=== PATIENT | female | born 1945 | race Caucasian/White ===

== ENCOUNTER → 2019-03-07 14:21 | Outpatient (ROUT) | payer MEDICARE, OTHER, SELFPAY ==
[2019-03-07 17:41] LABS: BUN Creatinine Ratio 28.3 (6-22); Blood Urea Nitrogen 17 mg/dL (7-17); Calcium 9.8 mg/dL (8.4-10.2); Carbon Dioxide 27 mmol/L (22-32); Chloride 104 mmol/L (98-107); Estimated Glomerular Filt Rate > 60.0 mL/min (>60); Glucose 99 mg/dL (80-110); HEMOLYSIS < 15 (0-50); Sodium 141 mmol/L (137-145)
[2019-03-07 17:57] LABS: Rheumatoid Factor < 8.6 IU/mL (<12.0)
[2019-03-07 18:07] LABS: Add Manual Diff / Slide Review NO; Basophils Absolute Auto 0 /uL (0-100); Basophils Percent Auto 0.7 % (0-2); Eosinophils Absolute Auto 100 /uL (0-450); Eosinophils Percent Auto 1.3 % (2-4); Hematocrit 43.2 % (36-46); Hemoglobin 14.5 g/dL (12.0-16.0); Lymphocytes Absolute Auto 2200 /uL (1100-4500); Lymphocytes Percent Auto 38.1 % (25-40); Mean Corpuscular HGB Conc 33.6 % (30-36); Mean Corpuscular Hemoglobin 32.3 PG (26-34); Mean Corpuscular Volume 96.2 fL (80-100); Monocytes Absolute Auto 600 /uL (0-900); Monocytes Percent Auto 9.9 % (3-14); Neutrophils Absolute Auto 3000 /uL (1500-7000); Platelet Count 201 X10^3/uL (150-400); Red Blood Cell Count 4.49 X10^6/uL (4.0-5.2); Red Cell Distribution Width 13.1 % (11.6-14.8); White Blood Cell Count 5.9 X10^3/uL (4.5-11.0)
[2019-03-07 18:39] LABS: Erythrocyte Sedimentation Rate 6 MM/HR (0-20)
[2019-03-09 11:43] LABS: CCP Antibody (IgG) < 16 Units (< 20)
[2019-03-10 11:35] LABS: ANA Screen, IFA NEGATIVE (NEGATIVE)
[2019-03-10 15:06] LABS: HLA B27 NEGATIVE (Negative)
== END ==
PROVIDERS: PCP Physician Assistant; Visit Provider Student in an Organized Health Care Education/Training Program
DX: Z00.00 Encounter for general adult medical examination without abnormal findings (principal); M25.50 Pain in unspecified joint
CPT/HCPCS: 80048; 81374; 85025; 85651; 86038; 86200; 86430

== ENCOUNTER → 2019-03-09 09:34 | Outpatient (CLI) | payer MEDICARE, OTHER, SELFPAY ==
--- NOTE | 2019-03-09 | DI.RAD.S_ITS ---
PROCEDURE: XR HAND RT MIN 3V INDICATIONS: polyarthralgia TECHNIQUE: 3 views of the hand(s) acquired. COMPARISON: None. FINDINGS: Bones: No fractures or dislocations. Carpal bones are normally aligned. No suspicious bony lesions. There is severe degenerative joint disease at the triscaphe joint, the second and third distal interphalangeal joints and wrist joint space narrowing, periarticular sclerosis and osteophyte formation. Moderate degenerative joint disease at the first carpal metacarpal joint, first metacarpal phalangeal joint. There is periarticular bony erosion at the second and third distal and middle phalanges at the distal interphalangeal joints. Soft tissues: No suspicious soft tissue calcifications. IMPRESSION: Severe degenerative joint disease. Erosive changes are seen at the second and third distal interphalangeal joints, suggesting erosive OA. Recommend clinical correlation. Dictated by: Leticia Kim M.D. on 03/09/2019 at 13:06 Approved by: Leticia Kim M.D. on 03/09/2019 at 13:09
--- NOTE | 2019-03-09 | DI.RAD.S_ITS ---
PROCEDURE: XR HAND LT MIN 3V INDICATIONS: Polyarthralgia TECHNIQUE: 3 views of the hand(s) acquired. COMPARISON: None. FINDINGS: Bones: No fractures or dislocations. Carpal bones are normally aligned. No suspicious bony lesions. There is [id number] degenerative joint disease at the triscaphe joint, first metacarpal joint, first metacarpal phalangeal joint, and multiple interphalangeal joints (most significant at the second distal interphalangeal joint). There is mild lateral subluxation of the second distal phalanx at the distal interphalangeal joint. There is osteopenia. Soft tissues: No suspicious soft tissue calcifications. IMPRESSION: 1. Severe degenerative joint disease, most likely secondary to osteoarthritis. 2. Osteopenia. Dictated by: Leticia Kim M.D. on 03/09/2019 at 13:04 Approved by: Leticia Kim M.D. on 03/09/2019 at 13:06
== END ==
PROVIDERS: PCP Physician Assistant; Visit Provider Student in an Organized Health Care Education/Training Program
DX: M85.851 Other specified disorders of bone density and structure, right thigh (principal); Z78.0 Asymptomatic menopausal state; M85.842 Other specified disorders of bone density and structure, left hand; M19.042 Primary osteoarthritis, left hand; M18.11 Unilateral primary osteoarthritis of first carpometacarpal joint, right hand; M19.041 Primary osteoarthritis, right hand; Z82.62 Family history of osteoporosis
CPT/HCPCS: 73130; 77080

== ENCOUNTER 2019-03-14 07:25 | Day surgery (SDC) | payer MEDICARE, OTHER, SELFPAY ==
[2019-03-14] MEDS: PROPARACAINE 0.5% OPHTH SOL 2 DROPS EYE-OP (08:05)
[2019-03-14] MEDS: CATARACT EYE COMPOUND (10 DROPS/SYRINGE) 3 DROPS EYE-OP (08:12)
[2019-03-14 08:21] VITALS: BP 132/79; PULSE 75; RESP 16; TEMP 36.2; O2SAT 99; BMI 24.0
--- NOTE | 2019-03-14 09:01 | PM.PREOP ---
Pre-operative Note Interval Note History & Physical reviewed/Exam performed by Physician: No Changes to H&P: No
--- NOTE | 2019-03-14 09:01 | PM.OP.1 ---
Operative Date/Time/Diagnoses Pre-op diagnosis: Nuclear Cataract Left eye Post-op diagnosis: same Procedure & Clinicians Surgeon: Zechariah Boswell Anesthesia Type: MAC +/- and Sedation Operative Notes Procedure in detail: Patient brought to the operating suite. Tetracaine drops placed in the left eye. Patient was prepped and draped in sterile manner. Wire lid speculum was placed in the eye. Betadine drops were placed on the eye. This was irrigated. Lidocaine jelly was placed on the eye. A paracentesis port was created with a side-port blade. 0.1 mL 1% preservative free lidocaine was injected into the anterior chamber. The anterior chamber was deepened with viscoelastic. 2.6 mm keratome was used to create a temporal clear corneal incision. Cystotome and Utrata forceps were used to create continuous tear capsulorrhexis. Balanced salt solution was used to hydro dissect the nucleus. The phacoemulsification handpiece was inserted and the nucleus was removed using the stop and chop technique. The irrigation aspiration handpiece was inserted and the remaining cortex was removed. Anterior chamber was deepened with viscoelastic. An Marcelino ZCB00 intraocular lens with a power of 23.0 was injected into the capsular bag. Irrigation aspiration handpiece was inserted and the remaining viscoelastic was removed. Incision was hydrated with balanced salt solution and found to be leak free with pressure with Weck-Christie sponges. 0.1 mL Vigamox injected anterior chamber. 0.3 mL Kenalog 10 mg was injected subconjunctivally. Lid speculum was removed. The patient left the operating room in excellent condition. Complications: none Post-operative Condition: stable Disposition: same day surgery
--- NOTE | 2019-03-14 09:14 | SUR.OPER ---
Supine on eye stretcher, head on extension cradle secured with tape. Arms tucked at sides with blanket. Pillow under knees.
[2019-03-14] MEDS: PHENYLEPHRINE/LIDOCAINE VIAL (OR) 0.2 ML EYE-OP (09:16)
[2019-03-14] MEDS: CHONDROIDTIN/SOD HYALURONATE 1.05 ML SYRINGE INTRAOCULA (09:17)
[2019-03-14] MEDS: MOXIFLOXACIN INJ 5 MG/ML VIAL EYE-OP (09:17)
[2019-03-14] MEDS: TRIAMCINOLONE 50 MG/5 ML VIAL INJ (09:17)
[2019-03-14] MEDS: BALANCED SALT IRRIG SOLN NO.2 500 ML, EPINEPHrine 1 MG IRR (09:18)
[2019-03-14] MEDS: LIDOCAINE JELLY 2% 5 ML 1 APPLIC TOP (09:18)
[2019-03-14] MEDS: TETRACAINE 0.5% OPHTH DROPS 4 ML 2 DROPS EYE-OP (09:18)
[2019-03-14 09:35] VITALS: BP 122/66; PULSE 81; RESP 16; TEMP 36.6; O2SAT 99
== END 2019-03-14 09:50 | disposition home or self-care (01) ==
LOC: OR 07:28
PROVIDERS: PCP Student in an Organized Health Care Education/Training Program; Visit Provider Ophthalmology
PROC: (CPT 66984; principal; 2019-03-14 09:15)
DX: H25.12 Age-related nuclear cataract, left eye (principal); E78.5 Hyperlipidemia, unspecified; F32.9 Major depressive disorder, single episode, unspecified
CPT/HCPCS: 66984; J0171; J2250; J3301

== ENCOUNTER 2019-03-28 07:27 | Day surgery (SDC) | payer MEDICARE, OTHER, SELFPAY ==
[2019-03-28] MEDS: PROPARACAINE 0.5% OPHTH SOL 2 DROPS EYE-OP (07:51)
[2019-03-28] MEDS: CATARACT EYE COMPOUND (10 DROPS/SYRINGE) 3 DROPS EYE-OP (07:52)
[2019-03-28 07:53] VITALS: BP 138/73; PULSE 81; RESP 20; TEMP 35.9; O2SAT 100; BMI 23.4
--- NOTE | 2019-03-28 09:15 | PM.PREOP ---
Pre-operative Note Interval Note History & Physical reviewed/Exam performed by Physician: No Changes to H&P: No
--- NOTE | 2019-03-28 09:15 | PM.OP.1 ---
Operative Date/Time/Diagnoses Pre-op diagnosis: Nuclear cataract right eye Procedure & Clinicians Procedure: Cataract Surgery Same procedure as scheduled: Yes Surgeon: Zechariah Boswell Anesthesia Type: MAC +/- and Sedation Operative Notes Procedure in detail: Patient brought to the operating suite. Tetracaine drops placed in the right eye. Patient was prepped and draped in sterile manner. Wire lid speculum was placed in the eye. Betadine drops were placed on the eye. This was irrigated. Lidocaine jelly was placed on the eye. A paracentesis port was created with a side-port blade. 0.1 mL 1% preservative free lidocaine was injected into the anterior chamber. The anterior chamber was deepened with viscoelastic. 2.6 mm keratome was used to create a temporal clear corneal incision. Cystotome and Utrata forceps were used to create continuous tear capsulorrhexis. Balanced salt solution was used to hydro dissect the nucleus. The phacoemulsification handpiece was inserted and the nucleus was removed using the stop and chop technique. The irrigation aspiration handpiece was inserted and the remaining cortex was removed. Anterior chamber was deepened with viscoelastic. An Marcelino ZCB00 intraocular lens with a power of 23.0 was injected into the capsular bag. Irrigation aspiration handpiece was inserted and the remaining viscoelastic was removed. Incision was hydrated with balanced salt solution and found to be leak free with pressure with Weck-Christie sponges. 0.1 mL Vigamox injected anterior chamber. 0.3 mL Kenalog 10 mg was injected subconjunctivally. Lid speculum was removed. The patient left the operating room in excellent condition. Complications: none Post-operative Condition: stable Disposition: same day surgery
[2019-03-28] MEDS: PHENYLEPHRINE/LIDOCAINE VIAL (OR) 0.2 ML EYE-OP (09:34)
[2019-03-28] MEDS: MOXIFLOXACIN INJ 5 MG/ML VIAL EYE-OP (09:34)
[2019-03-28] MEDS: TETRACAINE 0.5% OPHTH DROPS 4 ML 2 DROPS EYE-OP (09:35)
[2019-03-28] MEDS: LIDOCAINE JELLY 2% 5 ML 1 APPLIC TOP (09:35)
[2019-03-28] MEDS: BALANCED SALT IRRIG SOLN NO.2 500 ML, EPINEPHrine 1 MG IRR (09:35)
[2019-03-28] MEDS: CHONDROIDTIN/SOD HYALURONATE 1.05 ML SYRINGE INTRAOCULA (09:35)
[2019-03-28] MEDS: TRIAMCINOLONE 50 MG/5 ML VIAL INJ (09:35)
[2019-03-28 09:46] VITALS: BP 120/71; PULSE 75; RESP 24; TEMP 36.6; O2SAT 98
== END 2019-03-28 09:59 | disposition home or self-care (01) ==
PROVIDERS: PCP Student in an Organized Health Care Education/Training Program; Visit Provider Ophthalmology
PROC: (CPT 66984; principal; 2019-03-28 09:15)
DX: H25.11 Age-related nuclear cataract, right eye (principal); E78.5 Hyperlipidemia, unspecified; F32.9 Major depressive disorder, single episode, unspecified
CPT/HCPCS: 66984; J0171; J2250; J3301

== ENCOUNTER → 2020-12-13 17:00 | Outpatient (CLI) | payer MEDICARE, OTHER, SELFPAY | PROVIDERS: PCP Student in an Organized Health Care Education/Training Program; Visit Provider Nurse Practitioner | DX: R30.0 Dysuria (principal) | CPT/HCPCS: 87077; 87086; 87186 ==

== ENCOUNTER → 2021-07-10 11:03 | Outpatient (CLI) | payer MEDICARE, OTHER, SELFPAY | PROVIDERS: PCP Student in an Organized Health Care Education/Training Program; Visit Provider Physician Assistant | DX: R30.0 Dysuria (principal) | CPT/HCPCS: 87086 ==

== ENCOUNTER → 2022-03-05 11:25 | Outpatient (CLI) | payer MEDICARE, OTHER, SELFPAY ==
--- NOTE | 2022-03-05 | DI.RAD.S_ITS ---
PROCEDURE: XR SHOULDER RT MIN 2V INDICATIONS: chronic right shoulder pain TECHNIQUE: 3 views of the shoulder were acquired. COMPARISON: [facility], , SHOULDER MINIMUM 2 VIEW LEFT, 08/07/2016, 14:47. FINDINGS: Bones: No fractures or dislocations. No suspicious bony lesions. Visualized ribs appear intact. Moderate to severe acromioclavicular as well as glenohumeral narrowing. Medial humeral osteophyte is present. Soft tissues: No suspicious soft tissue calcifications. IMPRESSION: Glenohumeral and acromioclavicular arthritic changes above. Minimal interval progression compared to 2017. Dictated by: Jasmin Ly M.D. on 03/05/2022 at 17:28 Approved by: Jasmin Ly M.D. on 03/05/2022 at 17:29
== END ==
PROVIDERS: PCP Student in an Organized Health Care Education/Training Program; Referring Provider Student in an Organized Health Care Education/Training Program; Visit Provider Student in an Organized Health Care Education/Training Program
DX: M25.511 Pain in right shoulder (principal); G89.29 Other chronic pain
CPT/HCPCS: 73030

== ENCOUNTER → 2022-06-23 09:14 | Outpatient (CLI) | payer MEDICARE, SELFPAY ==
--- NOTE | 2022-06-23 13:19 | DIET.OUTPTC ---
Medical Nutrition Therapy Assessment Name: Anna Jones Date: 06/23/22 Time: [id number] Dx: Impaired Fasting Glucose Provider: Randy Castillo presents for initial visit. +FH of DM with father and maternal grandmother. States she would like more info on nutrition, BG goals, when to check BG, and prediabetes vs diabetes range. Reports increased stress over the last 1-2 years with family illnesses and losses. In review of her BG, she can pinpoint when she had increased stress, which resulted in more FBG >100mg/dl. Stress management techniques involve deep breathing. Feels it is difficult to manage her hypothyroidism and DM. Has had various weight changes which has been reflected in hgA1c. Report PMH of 160# and HgA1c of 6.1%. Then lost weight and dropped to 5.2-5.3%. Feels it becomes harder to manage HgA1c over time wtih same lifestyle changes. Review of diet recall/journal indicates low carb intake, adequate veggies and protein. Carbs she consumes are in moderation and high fiber, ie berries, whole grain bread. Aims for 60 oz water, plus coffee and tea per day. States this impacts the amount of times she is urinating, especially at night. Anthropometrics: Ht: 63 Wt: 122# reported Weight history: Reports 20# loss over the last 1.5 year after son passed. Stress eating (under eating/over eating) has had an effect on her over this time. Physical Activity: Walks 30+ min per day or stationary bike. Self-Monitoring Blood Glucose: 2/7 FBG >100mg/dl over the last week, with all reading under 105mg/dl. Most readings over the last two months have been under 100mg/dl (88-105mg/dl). Few pc readings for review, all under 140mg/dl. Diabetes Medications: None Pertinent Labs: HgA1c reported 5.2% Past Medical History: (Last Reviewed 07/10/21 @ 11:23 by Renee White PA-C) Cataract (lens) fragments in eye following cataract surgery, left eye Depression Hyperlipidemia Hypothyroid Psoriasis Sinus drainage Nutrition Rx: Meals: 30g CHO Snacks: 15-30g CHO fluids: 48-60oz water per day Nutrition Diagnosis: - Food and nutrition related knowledge deficit r/t no previous MNT aeb pt report Intervention: This participant was very receptive. Provided appropriate educational handouts. Discussed the following topics: Completed intake assessment. Discussed barriers to care. Pathophysiology of T2DM HgA1c for prediabtes vs diabetes BG goals for someone without diabetes (FBG <100mg/dl and 1-2hr pc <140mg/dl) Self monitoring recommendations High fiber foods and choosing complex carbs if having carbs Heart health nutrition: heart healthy fats Stress management and impact on BG Fluid recs for BG and kidney dwayne Created SMART goals for patient self-care and success. Goals: Follow recs for BG: FBG <100 and 1-2 hour pc <140 48-60oz fluids per day Try stress management resources provided Follow-up: VERONICA MACARIO follow-up prn. Discussed the lack of insurance coverage likely for this diagnosis, and Anna wanted to complete visit today regardless with an ABN form. Encouraged her to call or message me with questions prn. She agreed. Overall, seems she is managing BG well. Lore Reynolds RDN, [facility] Certified Diabetes Care and Mental Hygienist P: [phone] Thank you for this referral
== END ==
PROVIDERS: Absent Provider Student in an Organized Health Care Education/Training Program; Family Provider Student in an Organized Health Care Education/Training Program; PCP Student in an Organized Health Care Education/Training Program; Referring Provider Student in an Organized Health Care Education/Training Program
DX: R73.01 Impaired fasting glucose (principal); Z71.3 Dietary counseling and surveillance
CPT/HCPCS: 97802

== ENCOUNTER → 2022-09-03 11:12 | Outpatient (CLI) | payer MEDICARE, SELFPAY ==
--- NOTE | 2022-09-03 | DI.RAD.S_ITS ---
Bone Density Report Name: BUSTER BONNER Age: 77 Sex: Female Ethnicity: White Date of : 1945 Indication: osteopenia; Referring Provider: MITZY BUENROSTRO Study: Bone densitometry was performed. Exam Date: September 03, 2022 Accession number: [id number] Bone Density: Region BMD T-score Z-score Classification AP Spine(L1, L2, L3) 1.043 0.2 2.8 Normal Femoral Neck (Left) 0.602 -2.2 0.1 Osteopenia Total Hip (Left) 0.677 -2.2 -0.1 Osteopenia Femoral Neck (Right) 0.632 -2.0 0.3 Osteopenia Total Hip (Right) 0.666 -2.3 -0.2 Osteopenia Total Hip Mean 0.672 -2.3 -0.2 Osteopenia World Health Organization criteria for BMD impression classify patients as: Normal (T-score at or above -1.0), Osteopenia (T-score between -1.0 and -2.5), or Osteoporosis (T-score at or below -2.5). 10-year Fracture Risk(1): Major Osteoporotic Fracture 14% Hip Fracture 4.6% Reported Risk Factors: [place] (), Neck BMD=0.602, BMI=21.1 (1) FRAX(R) Version 3.08. Fracture probability calculated for an untreated patient. Fracture probability may be lower if the patient has received treatment. Previous Exams: -- Region Exam Age BMD T-score BMD Change BMD Change Date g/cm2 vs Baseline vs Previous -- AP Spine (L1-L3) 09/03/2022 77 1.043 0.2 -0.028 (-2.7%)# -0.028 (-2.7%)# 03/09/2019 73 1.071 0.5 Total Hip(Left) 09/03/2022 77 0.677 -2.2 -0.103 (-13.2%)# -0.103 (-13.2%)# 03/09/2019 73 0.780 -1.3 Total Hip(Right) 09/03/2022 77 0.666 -2.3 -0.051 (-7.1%)# -0.051 (-7.1%)# 03/09/2019 73 0.717 -1.8 -- *Denotes significance at 95% confidence level, LSC for AP Spine = 0.022 g/cm2, LSC for Total Hip = 0.027 g/cm2 # Denotes dissimilar scan types or analysis methods Impression: The patient has low bone mass, based on the Right Total Hip T-score. The patient has an estimated ten-year risk of hip fracture of 4.6% and an estimated ten-year risk of major fracture of 14%, based on the WHO FRAX algorithm. No significant bone loss was observed. Discussion: BONE DENSITY IS LOW AT ONE OR MORE SKELETAL SITES. THE PATIENT'S BMD AND CLINICAL RISK FACTORS CONTRIBUTE TO THIS PATIENT'S INCREASED RISK OF FRACTURE. This patient's lowest T-score is low at one or more skeletal sites. It meets the World Health Organization's (WHO) criteria for low bone mass (T-score between -1.0 and -2.5). The patient's 10-year risk of hip fracture as calculated by FRAX exceeds the threshold where pharmacological therapy is recommended by the National Osteoporosis Foundation (NOF). However, all treatment decisions require clinical judgment and consideration of individual patient factors, including patient preferences, comorbidities, previous drug use, risk factors not captured in the FRAX model (e.g., frailty, falls, vitamin D deficiency, increased bone turnover, interval significant decline in bone density) and possible under or overestimation of fracture risk by FRAX. The patient should follow a healthful lifestyle (good nutrition with adequate calcium and vitamin D, and appropriate weight-bearing exercise). Follow-Up: Consider a repeat BMD and Vertebral Fracture Assessment (VFA) exam in 2 years or sooner if medically necessary, to reassess this patient's status. Reported by: WICHO TAN M.D. on 09/03/2022 12:53:00 PM.
== END ==
PROVIDERS: Family Provider Student in an Organized Health Care Education/Training Program; PCP Student in an Organized Health Care Education/Training Program; Referring Provider Student in an Organized Health Care Education/Training Program; Visit Provider Student in an Organized Health Care Education/Training Program
DX: M85.851 Other specified disorders of bone density and structure, right thigh (principal)
CPT/HCPCS: 77080

== ENCOUNTER → 2024-02-01 18:46 | Outpatient (CLI) | payer MEDICARE, SELFPAY | PROVIDERS: Family Provider Student in an Organized Health Care Education/Training Program; PCP Student in an Organized Health Care Education/Training Program; Visit Provider Physician Assistant Medical | DX: R30.0 Dysuria (principal) | CPT/HCPCS: 87086 ==

== ENCOUNTER → 2024-10-11 14:58 | Outpatient (CLI) | payer MEDICARE, SELFPAY ==
--- NOTE | 2024-10-11 15:01 | DI.ECHO.S_ITS ---
[facility] : : [address] : : [place] : : [id number] : : Phone: [phone] Echocardiogram Report + + :Name: BUSTER BONNER Study Date: 10/11/2024 Height: 63 in : :[facility] ReadingLocation: Weight: 122 lb : : Gender: Female BSA: 1.6 m2 : :: 1945 Age: 79 yrs BP: 143/68 mmHg: :Reason For Study: DYPSNEA ON EXERTION : :Ordering Physician: NITA, : :HERNAN ELLER Performed By: Derek Zuniga : :Referring: HERNAN MOYA : + + Interpretation Summary 1. The left ventricular contractility is normal. Estimate ejection fraction is greater than 60% with no segmental wall motion abnormalities. Mild asymmetrical septal hypertrophy without obstruction. Indeterminant diastolic function. 2. The right ventricular contractility is normal. 3. Mild left atrial enlargement. All other cardiac chambers are of normal size. 4. Mild mitral regurgitation. 5. Tricuspid regurgitation on spectral display only with estimated pulmonary systolic artery pressures of 30 mmHg. 6. No obvious intracardiac shunts. 7. No obvious intracardiac masses or thrombi. 8. No hemodynamically significant pericardial effusion. 9. Low right-sided filling pressures. Conclusion: Normal biventricular systolic function with mild valvular insufficiencies. Procedure: A two-dimensional transthoracic echocardiogram with color flow and Doppler was performed. The study quality was technically good. There is no prior echocardiogram noted for this patient. The patient was in normal sinus rhythm during the exam. Left Ventricle: The left ventricle is normal in size. There is mild asymmetric left ventricular hypertrophy. There is no ventricular septal defect visualized. The ejection fraction is estimated to be 60-65%. There are no focal wall motion abnormalities. Right Ventricle: The right ventricle is normal in size and function. Atria: The left atrium is mildly dilated. Right atrial size is normal. There is no Doppler evidence for an interatrial shunt. Mitral Valve: There is mild to moderate mitral annular calcification. The mitral valve leaflets appear mildly thickened, but open well. The mitral valve leaflets are mildly calcified. There is mild mitral regurgitation. Aortic Valve: The aortic valve is trileaflet. The aortic valve opens well. No aortic regurgitation is present. Tricuspid Valve: The tricuspid valve leaflets are thin and pliable. There is trace tricuspid regurgitation. The right ventricular systolic pressure is estimated to be at least 30 mmHg based on an estimated right atrial pressure of 3 mm Hg. Pulmonic Valve: The pulmonic valve is not well seen, but is grossly normal. There is trace pulmonic regurgitation. Great Vessels: The aortic root is normal size. The dimensions of the ascending aorta are normal. The pulmonary artery is normal size. The IVC is of normal diameter and collapses greater than 50% with a sniff. This suggests a low right atrial pressure of 3 mm Hg. Pericardium/ Pleura There is no pericardial effusion. There is no pleural effusion. MMode/2D Measurements & Calculations LVIDd: 3.5 cm LVOT diam: 1.8 cm LVIDs: 2.5 cm Ao root diam: 3.2 cm FS: 27.3 % asc Aorta Diam: 3.5 cm EPSS: 0.65 cm IVSd: 1.1 cm LVPWd: 0.93 cm LV gaspar. diameter/BSA (cm/m^2): 2.2 LV sys. diameter/BSA (cm/m^2): 1.6 LA A2 area: 17.4 cm2 RA long axis: 4.8 cm LA A4 area: 20.0 cm2 RA area: 13.7 cm2 LA length (vol): 5.4 cm RA vol: 33.5 ml LA vol: 54.9 ml RA : 21.4 ml/m2 LA vol index: 35.0 ml/m2 IVC diam: 1.4 cm RVD1 (basal): 2.9 cm RVD2 (mid): 2.5 cm TAPSE: 2.7 cm Doppler Measurements & Calculations Ao V2 max: 168.0 cm/sec LVOT Max Dwayne: 134.7 cm/sec Ao V2 mean: 112.3 cm/sec LV V1 max P.3 mmHg Ao max P.3 mmHg LV V1 VTI: 28.6 cm Ao mean P.8 mmHg HERLINDA(I,D): 2.1 cm2 Ao V2 VTI: 34.2 cm HERLINDA(V,D): 2.0 cm2 sev ratio: 0.84 HERLINDA indexed to BSA (cm^2/m^2): 1.3 MV E max dwayne: 72.8 cm/sec TR max dwayne: 258.1 cm/sec MV A max dwayne: 104.2 cm/sec TR max P.6 mmHg MV E/A: 0.70 PA V2 max: 109.4 cm/sec Med Peak E' Dwayne: 5.8 cm/sec PA V2 mean: 74.7 cm/sec E/E' med: 12.5 PA mean P.5 mmHg Lat Peak E' Dwayne: 6.8 cm/sec PA pr(Accel): 34.5 mmHg E/E' lat: 10.7 E/e' average: 11.6 MV dec time: 0.29 sec SV(LVOT): 72.0 ml Reading Physician:RAUL
== END ==
PROVIDERS: Family Provider Student in an Organized Health Care Education/Training Program; PCP Student in an Organized Health Care Education/Training Program; Referring Provider Family Medicine; Visit Provider Family Medicine
DX: I34.81 Nonrheumatic mitral (valve) annulus calcification (principal); I34.0 Nonrheumatic mitral (valve) insufficiency; R06.09 Other forms of dyspnea
CPT/HCPCS: 93306

== ENCOUNTER → 2025-01-25 12:09 | Outpatient (CLI) | payer MEDICARE, SELFPAY ==
--- NOTE | 2025-01-25 12:10 | DI.RAD.S_ITS ---
PROCEDURE: XR DEXA AXIAL SKELETON INDICATIONS: Screening COMPARISON: [facility], , XR DEXA AXIAL SKELETON, 09/03/2022, 11:36. FINDINGS: Lumbar Spine: Bone mineral density 0.977 g/cm2, T score -0.6. Left Femoral Neck: Bone mineral density 0.568 g/cm2, T score -2.5. Left Hip: Bone mineral density 0.663 g/cm2, T score -2.3, no significant change. Fracture Risk Calculation (when applicable): 10-year fracture risk of a major osteoporotic fracture 23 percent and of a hip fracture 7.9 percent. Fracture probability calculated for nontreated patient. Fracture probability maybe lower if the patient has received treatment. (T score greater or equal to -1.0 to: NORMAL) (T score from -1.1 to -2.4: OSTEOPENIA) (T score less than or equal to -2.5: OSTEOPOROSIS) IMPRESSION: Normal mineralization in the lumbar spine. Left femoral neck indicates osteoporosis. Please see follow-up guidelines below. Follow-up guidelines as follows: Osteoporosis: Consider a repeat DEXA and Vertebral Fracture Assessment (VFA) exam in 2 years or sooner if medically necessary, to reassess this patient's status. Osteopenia: Consider a repeat DEXA in 2-3 years to reassess this patient's status, or if there is a new clinical indication. Normal: Consider a repeat DEXA in 5 years or sooner, or if there is a new clinical indication. All treatment decisions require clinical judgment and consideration of individual patient factors, including patient preferences, comorbidities, previous drug use, risk factors not captured in the FRAX model (e.g., frailty, falls, vitamin D deficiency, increased bone turnover, interval significant decline in bone density ) and possible under- or over-estimation of fracture risk by FRAX. In addition, the NOF Guide recommends that FDA-approved medical therapies be considered in postmenopausal women and men age >= 50 years with a: * Hip or vertebral (clinical or morphometric) fracture * T-score of <=-2.5 at the spine or hip * Ten-year fracture probability by FRAX of >= 3% for hip fracture or >=20% for major osteoporotic fracture. Dictated by: Karey Nguyen RRGa Interpreted: Beni Esquivel MD on 01/25/2025 at 14:15 Transcribed by: KENN on 01/25/2025 at 14:16 Approved by: Beni Esquivel M.D. on 01/26/2025 at 9:21
== END ==
LOC: RAD 12:09
PROVIDERS: Family Provider Student in an Organized Health Care Education/Training Program; PCP Student in an Organized Health Care Education/Training Program; Referring Provider Student in an Organized Health Care Education/Training Program; Visit Provider Student in an Organized Health Care Education/Training Program
DX: M81.0 Age-related osteoporosis without current pathological fracture (principal); N95.9 Unspecified menopausal and perimenopausal disorder
CPT/HCPCS: 77080